=== PATIENT | female | born 1980 | race Caucasian/White ===

== ENCOUNTER 2017-09-29 20:44 | Emergency (ER) | payer OTHER ==
[2017-09-29] MEDS: SOD CHLORIDE 0.9% 1,000 ML IV (22:10)
[2017-09-29] MEDS: DIPHENHYDRAMINE 50 MG INJ IV (22:11)
[2017-09-29] MEDS: METOCLOPRAMIDE 10 MG INJ IV (22:11)
[2017-09-29 22:28] LABS: ADD MAN DIFF? NO
[2017-09-29 22:30] LABS: BASOPHIL # 0.1 10^3/ul (0.0-0.1); BASOPHILS % 0.6 % (0.0-2.0); EOSINOPHILS # 0.1 10^3/ul (0.0-0.5); EOSINOPHILS % 0.3 % (0.0-7.0); HEMATOCRIT 41.8 % (37.0-47.0); HEMOGLOBIN 14.1 g/dl (12.0-16.0); LYMPHOCYTES # 1.6 10^3/ul (0.8-2.9); LYMPHOCYTES % 10.2 % (15.0-51.0); MEAN CORPUSCULAR HEMOGLOBIN 31.1 pg (29.0-33.0); MEAN CORPUSCULAR HGB CONC 33.7 g/dl (32.0-37.0); MEAN CORPUSCULAR VOLUME 92.1 fl (82.0-101.0); MEAN PLATELET VOLUME 9.7 fl (7.4-10.4); MONOCYTE # 0.4 10^3/ul (0.3-0.9); MONOCYTES % 2.3 % (0.0-11.0); NEUTROPHIL # 13.7 10^3/ul (1.6-7.5); NEUTROPHILS % 86.1 % (39.0-77.0); PLATELET COUNT 328 10^3/UL (140-415); RED BLOOD COUNT 4.54 10^6/ul (4.20-5.40); RED CELL DISTRIBUTION WIDTH 12.5 % (11.5-14.5)
[2017-09-29 22:30] LABS: WHITE BLOOD COUNT 15.9 10^3/ul (4.8-10.8)
[2017-09-29 22:45] LABS: ALANINE AMINOTRANSFERASE 40 IU/L (13-69); ALBUMIN 3.8 g/dl (3.3-4.9); ALBUMIN/GLOBULIN RATIO 1.22; ALKALINE PHOSPHATASE 92 IU/L (42-121); AMYLASE 85 U/L (11-123); ANION GAP 9 (8-16); ASPARTATE AMINO TRANSFERASE 21 IU/L (15-46); BILIRUBIN,INDIRECT 0.4 mg/dl (0-1.1); BILIRUBIN,TOTAL 0.4 mg/dl (0.2-1.3); BLOOD UREA NITROGEN 19 mg/dl (7-20); CALCIUM 9.1 mg/dl (8.4-10.2); CARBON DIOXIDE 32 mmol/L (21-31); CHLORIDE 104 mmol/L (97-110); CREATININE 0.81 mg/dl (0.44-1.00); GLUCOSE 107 mg/dl (70-220); LIPASE 86 U/L (23-300); POTASSIUM 4.2 mmol/L (3.5-5.1); SODIUM 141 mmol/L (135-144); TOTAL PROTEIN 6.9 g/dl (6.1-8.1)
[2017-09-29 22:49] LABS: ADD UMIC YES; UR AMORPHOUS CRYSTAL MODERATE /HPF (NONE SEEN); UR ASCORBIC ACID 40 mg/dL (NEGATIVE); UR BACTERIA FEW /HPF (NONE SEEN); UR BILIRUBIN (Dip) NEGATIVE (NEGATIVE); UR BLOOD (Dip) NEGATIVE (NEGATIVE); UR BUDDING YEAST MANY /HPF (NONE SEEN); UR CLARITY CLOUDY (CLEAR); UR COLOR YELLOW (YELLOW); UR GLUCOSE (Dip) NEGATIVE (NEGATIVE); UR KETONES (Dip) NEGATIVE (NEGATIVE); UR LEUKOCYTE ESTERASE (Dip) TRACE Leu/ul (NEGATIVE); UR MUCUS FEW /HPF (NONE SEEN); UR NITRITE (Dip) NEGATIVE (NEGATIVE); UR RBC 2 /HPF (0-5); UR SPECIFIC GRAVITY (Dip) 1.025 (1.003-1.030); UR SQUAMOUS EPITHELIAL CELL MODERATE /HPF (FEW); UR TOTAL PROTEIN (Dip) 1+ mg/dl (NEGATIVE); UR UROBILINOGEN (Dip) NEGATIVE (NEGATIVE); UR WBC 11 /HPF (0-5)
[2017-09-29 22:50] LABS: INR 1.04; PROTIME 13.7 Sec (11.9-14.9); PT RATIO 1.1
[2017-09-29 22:51] LABS: PARTIAL THROMBOPLASTIN TIME 31.2 Sec (25.0-35.0)
[2017-09-29 22:57] LABS: TROPONIN-I < 0.012 ng/ml (0.00-0.12)
[2017-09-30] MEDS: KETOROLAC 30 MG INJ IV (00:03)
== END 2017-09-30 00:37 | disposition home or self-care (01) ==
LOC: FTE 09-30 00:37
DX: G43.909 Migraine, unspecified, not intractable, without status migrainosus (principal); R00.2 Palpitations
CPT/HCPCS: 70450; 80053; 81001; 82150; 83690; 84484; 84703; 85025; 85610; 85730; 93005; 96374; 96375; 99285-25

== ENCOUNTER 2017-12-26 20:02 | Emergency (ER) | payer OTHER ==
[2017-12-26] MEDS: KETOROLAC 30 MG INJ IM (22:01)
== END 2017-12-26 22:31 | disposition home or self-care (01) ==
LOC: FTE 20:02
DX: M54.2 Cervicalgia (principal); M79.675 Pain in left toe(s)
CPT/HCPCS: 72040; 73660; 81025; 96372; 99284-25

== ENCOUNTER 2018-04-11 04:23 | Emergency (ER) | payer OTHER ==
[2018-04-11] MEDS: METOCLOPRAMIDE 10 MG INJ IV (05:27)
[2018-04-11] MEDS: DIPHENHYDRAMINE 50 MG INJ IV (05:27)
[2018-04-11] MEDS: SOD CHLORIDE 0.9% 1,000 ML IV (05:28)
[2018-04-11 06:06] LABS: ADD UMIC YES; UR ASCORBIC ACID NEGATIVE (NEGATIVE); UR BACTERIA FEW /HPF (NONE SEEN); UR BILIRUBIN (Dip) NEGATIVE (NEGATIVE); UR BLOOD (Dip) NEGATIVE (NEGATIVE); UR CLARITY SLIGHTLY CLOUDY (CLEAR); UR COLOR YELLOW (YELLOW); UR GLUCOSE (Dip) NEGATIVE (NEGATIVE); UR KETONES (Dip) NEGATIVE (NEGATIVE); UR LEUKOCYTE ESTERASE (Dip) 2+ Leu/ul (NEGATIVE); UR MUCUS FEW /HPF (NONE SEEN); UR NITRITE (Dip) NEGATIVE (NEGATIVE); UR RBC 1 /HPF (0-5); UR SPECIFIC GRAVITY (Dip) 1.024 (1.003-1.030); UR SQUAMOUS EPITHELIAL CELL FEW /HPF (FEW); UR TOTAL PROTEIN (Dip) NEGATIVE (NEGATIVE); UR UROBILINOGEN (Dip) NEGATIVE (NEGATIVE); UR WBC 4 /HPF (0-5)
[2018-04-11] MEDS ORDERED: ONDANSETRON (ODT) 4 MG TAB ODT (06:44)
== END 2018-04-11 06:51 | disposition home or self-care (01) ==
LOC: FTE 04:23
DX: G43.909 Migraine, unspecified, not intractable, without status migrainosus (principal); N39.0 Urinary tract infection, site not specified
CPT/HCPCS: 81001; 81025; 87086; 96361; 96374; 96375; 99284-25

== ENCOUNTER 2018-10-15 23:09 | Emergency (ER) | payer OTHER | END 2018-10-16 02:07 | disposition home or self-care (01) | LOC: FTE 10-16 02:07 | DX: H57.11 Ocular pain, right eye (principal) | CPT/HCPCS: 99283; Z7502 ==